=== PATIENT | male | born 1945 ===

== ENCOUNTER 2020-12-15 07:18 | Outpatient (CLI) | payer OTHER ==
[2020-12-15] MEDS ORDERED: TOPROL XL100 M1 PO (13:40)
[2020-12-15] MEDS ORDERED: METFORMIN HCL500 M3 PO (13:40)
[2020-12-15] MEDS ORDERED: IRBESARTAN-HCT1 EAC1 PO (13:40)
[2020-12-15] MEDS ORDERED: ADULT LOW DOSE81 M1 PO (13:41)
[2020-12-15] MEDS ORDERED: TAMS0.4C PO (13:41)
== END 2020-12-15 15:41 | disposition home or self-care (01) ==
LOC: RAD 07:18 → LAB 07:18
PROVIDERS: ATTEND Urology
DX: I10 Essential (primary) hypertension (principal); I11.9 Hypertensive heart disease without heart failure; N39.0 Urinary tract infection, site not specified; D68.8 Other specified coagulation defects; Z20.828 Contact with and (suspected) exposure to other viral communicable diseases

== ENCOUNTER → 2020-12-30 08:00 | Outpatient (CLI) | payer OTHER ==
[~2020-12-30] VITALS: Ht 165.1 cm; Wt 73.0 kg
[~2020-12-30 08:00] MED LIST: ADULT LOW DOSE81 M1 PO; IRBESARTAN-HCT1 EAC1 PO; METFORMIN HCL500 M3 PO; TAMS0.4C PO; TOPROL XL100 M1 PO
== END | disposition home or self-care (01) ==
LOC: LAB 08:00 → SURH 12:54 → EDSTATUS 15:04
PROVIDERS: ATTEND Urology
DX: N40.1 Benign prostatic hyperplasia with lower urinary tract symptoms (principal); R97.20 Elevated prostate specific antigen [PSA]; A49.01 Methicillin susceptible Staphylococcus aureus infection, unspecified site